=== PATIENT | female | born 1965 | race African-American/Black ===

== ENCOUNTER 2021-11-11 19:26 | Inpatient (IN) | payer MEDICAID, OTHER ==
[~2021-11-11] VITALS: Ht 162.6 cm; Wt 102.1 kg
[~2021-11-11 19:26] MED LIST: ASPI-862 PO; CLON0.5T4 PO; DIPH25CA83 PO; RANI150T8 PO
[2021-11-11 19:30] VITALS: BP_SYST 147
[2021-11-11 21:09] LABS: BASOPHILS # (AUTO) 0.1 K/uL (0.0-0.2); BASOPHILS % (AUTO) 1.4 % (0.0-2.0); EOSINOPHILS # (AUTO) 0.1 K/uL (0.0-0.4); EOSINOPHILS % (AUTO) 1.3 % (0.0-4.0); HEMOGLOBIN 10.9 g/dL (12.0-16.0); LYMPHOCYTES # (AUTO) 1.9 K/uL (1.0-5.5); LYMPHOCYTES % (AUTO) 41.3 % (20.5-51.5); MEAN CORPUSCULAR HEMOGLOBIN 24 pg (27-31); MEAN CORPUSCULAR HGB CONC 31 % (32-36); MEAN CORPUSCULAR VOLUME 77 fL (79.0-98.0); MONOCYTES # (AUTO) 0.3 K/uL (0.0-1.0); MONOCYTES % (AUTO) 7.3 % (1.7-9.3); NEUTROPHILS # (AUTO) 2.2 K/uL (1.8-7.7); NEUTROPHILS % (AUTO) 48.7 % (40.0-70.0); PLATELET COUNT (AUTO) 199 K/uL (130-430); RED BLOOD CELL COUNT(AUTO) 4.52 MIL/uL (4.2-6.2); RED CELL DISTRIBUTION WIDTH 19.9 % (9.0-15.0); WHITE BLOOD COUNT (AUTO) 4.6 K/uL (4.8-10.8)
[2021-11-11 21:13] LABS: ANION GAP 6 (5-15); CALCIUM 8.4 mg/dL (8.4-11.0); CHLORIDE 107 mmol/L (98-107); CREATININE 0.93 mg/dL (0.55-1.30); GFR AFRICAN AMERICAN 81 mL/min (>90); GLUCOSE 100 mg/dL (70-99); UREA NITROGEN, BLOOD 13 mg/dL (8-21)
[2021-11-11 21:21] LABS: ALANINE AMINOTRANSFERASE 29 U/L (12-78); ALBUMIN 3.3 g/dL (3.4-4.8); ASPARTATE AMINOTRANSFERASE 21 U/L (10-37); TOTAL BILIRUBIN 0.3 mg/dL (0.0-1.0)
[2021-11-11] MEDS ORDERED: iohexoL 300 mgI/mL, 150 ML INFUS..BTL IV ONE (21:38)
[2021-11-11] MEDS ORDERED: APIXABAN 2.5 MG TABLET PO SCH (21:45)
[2021-11-11] MEDS ORDERED: ASPIRIN 81 MG TAB.CHEW PO ONE (22:00)
[2021-11-11] MEDS ORDERED: cloNIDine HCL 0.1 MG TABLET PO PRN (22:45)
[2021-11-11] MEDS ORDERED: ACETAMINOPHEN 325 MG TABLET PO PRN (22:45)
[2021-11-11 23:00] VITALS: BP_SYST 158
[2021-11-12] MEDS: METOPROLOL TARTRATE 50 MG TABLET PO SCH ×3 (00:08→20:29)
[2021-11-12 07:00] VITALS: BP_SYST 153
[2021-11-12 08:00] VITALS: BP_SYST 153
[2021-11-12 08:28] LABS: CHOLESTEROL 156 mg/dL (<200); HDL CHOLESTEROL 69 mg/dL (>55); LDL CHOLESTEROL 76 mg/dL (<100); TRIGLYCERIDES 35 mg/dL (30-150)
[2021-11-12] MEDS: APIXABAN 2.5 MG TABLET PO SCH ×2 (08:50→20:29)
[2021-11-12] MEDS ORDERED: POTASSIUM CHLORIDE 40 MEQ in NS 250 ML IV ONE (11:00)
[2021-11-12] MEDS ORDERED: NON-FORMULARY MEDICATION (Ranitidine Hcl 150 MG) PO SCH (11:30)
[2021-11-12 12:01] VITALS: BP_SYST 122
[2021-11-12 16:05] VITALS: BP_SYST 111
[2021-11-12 20:00] VITALS: BP_SYST 124
[2021-11-12] MEDS: clonazePAM 0.5 MG TABLET PO SCH (20:30)
[2021-11-13] VITALS: BP_SYST 118
[2021-11-13 07:00] VITALS: BP_SYST 154
[2021-11-13 08:00] VITALS: BP_SYST 154
[2021-11-13] MEDS: METOPROLOL TARTRATE 50 MG TABLET PO SCH ×2 (08:30→20:04)
[2021-11-13] MEDS: APIXABAN 2.5 MG TABLET PO SCH ×2 (08:33→20:05)
[2021-11-13 12:10] VITALS: BP_SYST 132
[2021-11-13 16:00] VITALS: BP_SYST 113
[2021-11-13 20:00] VITALS: BP_SYST 151
[2021-11-13] MEDS: clonazePAM 0.5 MG TABLET PO SCH (20:03)
[2021-11-14] VITALS: BP_SYST 144
[2021-11-14] MEDS: METOPROLOL TARTRATE 50 MG TABLET PO SCH (09:21)
[2021-11-14] MEDS: APIXABAN 2.5 MG TABLET PO SCH (09:23)
[2021-11-14 11:30] VITALS: BP_SYST 140
== END 2021-11-14 11:50 | disposition home or self-care (01) | DRG 47 ==
LOC: SED 19:26 → STU 21:51
PROVIDERS: ADMIT Family Medicine; ATTEND Family Medicine
PROC: 4A10X4Z Monitoring of Central Nervous Electrical Activity, External Approach (ICD-10-PCS; principal; 2021-11-12)
DX: G45.9 Transient cerebral ischemic attack, unspecified (principal); E44.1 Mild protein-calorie malnutrition; I48.91 Unspecified atrial fibrillation; R53.1 Weakness; D64.9 Anemia, unspecified; E66.9 Obesity, unspecified; Z20.822 Contact with and (suspected) exposure to COVID-19; F17.210 Nicotine dependence, cigarettes, uncomplicated; I10 Essential (primary) hypertension; Z79.01 Long term (current) use of anticoagulants; Z79.899 Other long term (current) drug therapy; Z88.5 Allergy status to narcotic agent; Z88.8 Allergy status to other drugs, medicaments and biological substances; Z68.38 Body mass index [BMI] 38.0-38.9, adult
CPT/HCPCS: 36415; 70450-TC; 70496; 70498; 76376; 80053; 80061; 84484; 84703; 85025; 93005; 95816; 99291; 99292; G0378; Q9967

== ENCOUNTER 2022-02-28 18:32 | Inpatient (IN) | payer MEDICAID ==
[~2022-02-28] VITALS: Ht 160 cm; Wt 99.6 kg
[2022-02-28 18:40] VITALS: BP_SYST 151
[2022-02-28] MEDS ORDERED: NITROGLYCERIN 1 INCH (GM) OINT. TP ONE (19:12)
[2022-02-28] MEDS ORDERED: ASPIRIN 325 MG TABLET PO ONE (20:00)
[2022-02-28] MEDS ORDERED: MORPHINE 4 MG INJ. 4 MG/ML VIAL IVP ONE (20:00)
[2022-02-28 20:02] LABS: BASOPHILS % (AUTO) 0.1 % (0.0-2.0); EOSINOPHILS # (AUTO) 0.1 K/uL (0.0-0.4); EOSINOPHILS % (AUTO) 1.6 % (0.0-4.0); HEMOGLOBIN 11.1 g/dL (12.0-16.0); LYMPHOCYTES # (AUTO) 2.2 K/uL (1.0-5.5); LYMPHOCYTES % (AUTO) 46.6 % (20.5-51.5); MEAN CORPUSCULAR HEMOGLOBIN 23 pg (27-31); MEAN CORPUSCULAR HGB CONC 31 % (32-36); MEAN CORPUSCULAR VOLUME 74 fL (79.0-98.0); MONOCYTES # (AUTO) 0.3 K/uL (0.0-1.0); MONOCYTES % (AUTO) 6.5 % (1.7-9.3); NEUTROPHILS # (AUTO) 2.1 K/uL (1.8-7.7); NEUTROPHILS % (AUTO) 45.2 % (40.0-70.0); PLATELET COUNT (AUTO) 209 K/uL (130-430); RED BLOOD CELL COUNT(AUTO) 4.83 MIL/uL (4.2-6.2); RED CELL DISTRIBUTION WIDTH 16.3 % (9.0-15.0); WHITE BLOOD COUNT (AUTO) 4.7 K/uL (4.8-10.8)
[2022-02-28 20:18] LABS: ANION GAP 9 (5-15); CALCIUM 9.1 mg/dL (8.4-11.0); CHLORIDE 105 mmol/L (98-107); CREATININE 0.88 mg/dL (0.55-1.30); GLUCOSE 98 mg/dL (70-99); UREA NITROGEN, BLOOD 13 mg/dL (8-21)
[2022-02-28 20:30] LABS: ALANINE AMINOTRANSFERASE 30 U/L (12-78); ALBUMIN 3.7 g/dL (3.4-4.8); ASPARTATE AMINOTRANSFERASE 23 U/L (10-37); TOTAL BILIRUBIN 0.3 mg/dL (0.0-1.0)
[2022-02-28 20:31] LABS: GFR AFRICAN AMERICAN 86 mL/min (>90)
[2022-02-28] MEDS ORDERED: NITROGLYCERIN 0.4 MG TAB.SUBL SL PRN (21:00)
[2022-02-28] MEDS ORDERED: IBUP-2604 PO (22:27)
[2022-02-28] MEDS ORDERED: MORPHINE 2 MG/ML INJ. SYRINGE IVP ONE (22:45)
[2022-02-28 23:30] VITALS: BP_SYST 153
[2022-03-01 04:00] VITALS: BP_SYST 133
[2022-03-01 08:00] VITALS: BP_SYST 135
[2022-03-01] MEDS ORDERED: ASPIRIN 81 MG TAB.CHEW PO SCH (09:00)
[2022-03-01] MEDS ORDERED: METOPROLOL TARTRATE 25 MG TABLET PO SCH (09:00)
[2022-03-01] MEDS ORDERED: ENOXAPARIN SODIUM 40 MG/0.4 ML SYRINGE SUBCUT SCH (09:00)
[2022-03-01 12:00] VITALS: BP_SYST 127
== END 2022-03-01 14:00 | disposition home or self-care (01) | DRG 203 ==
LOC: SED 18:32 → STU 20:58
PROVIDERS: ADMIT Family Medicine; ATTEND Family Medicine
DX: M94.0 Chondrocostal junction syndrome [Tietze] (principal); I48.0 Paroxysmal atrial fibrillation; Z20.822 Contact with and (suspected) exposure to COVID-19; Z79.82 Long term (current) use of aspirin; Z87.891 Personal history of nicotine dependence; Z88.5 Allergy status to narcotic agent; Z86.73 Personal history of transient ischemic attack (TIA), and cerebral infarction without residual deficits; Z79.899 Other long term (current) drug therapy; Z88.8 Allergy status to other drugs, medicaments and biological substances; Z59.00 Homelessness unspecified
CPT/HCPCS: 36415; 71045; 80053; 82550; 83880; 84484; 85025; 85379; 93005; 96374; 99285; G0378; J2270

== ENCOUNTER 2022-06-18 18:42 | Emergency (ER) | payer MEDICAID ==
[~2022-06-18] VITALS: Ht 162.6 cm; Wt 95.3 kg
[~2022-06-18 18:42] MED LIST changes: -CLON0.5T4 PO; -DIPH25CA83 PO; +IBUP-2604 PO; -RANI150T8 PO
[2022-06-18 18:59] VITALS: BP_SYST 125
[2022-06-18 20:26] LABS: BASOPHILS % (AUTO) 0.7 % (0.0-2.0); EOSINOPHILS # (AUTO) 0.1 K/uL (0.0-0.4); EOSINOPHILS % (AUTO) 1.3 % (0.0-4.0); LYMPHOCYTES # (AUTO) 1.8 K/uL (1.0-5.5); LYMPHOCYTES % (AUTO) 32.2 % (20.5-51.5); MEAN CORPUSCULAR HEMOGLOBIN 23 pg (27-31); MEAN CORPUSCULAR HGB CONC 30 % (32-36); MEAN CORPUSCULAR VOLUME 75 fL (79.0-98.0); MONOCYTES # (AUTO) 0.5 K/uL (0.0-1.0); MONOCYTES % (AUTO) 8.2 % (1.7-9.3); NEUTROPHILS # (AUTO) 3.3 K/uL (1.8-7.7); NEUTROPHILS % (AUTO) 57.6 % (40.0-70.0); PLATELET COUNT (AUTO) 236 K/uL (130-430); RED BLOOD CELL COUNT(AUTO) 4.38 MIL/uL (4.2-6.2); RED CELL DISTRIBUTION WIDTH 17.1 % (9.0-15.0); WHITE BLOOD COUNT (AUTO) 5.7 K/uL (4.8-10.8)
[2022-06-18] MEDS ORDERED: IBUPROFEN 800 MG TABLET PO ONE (20:30)
--- NOTE | 2022-06-18 20:30 | NUR ---
PT IS HERE BECUASE SHE HAS A CHEST PAIN NO REDAITING ANYWHERE. PT IS ALERT AND ORIENTED X4. PT IS AMBULATORY
--- NOTE | 2022-06-18 20:32 | NUR ---
Placed in room 02 . Placed on monitor and storage bin tender, blood pressure machine and pulse oximeter. To gown for exam. Side rails up. Report given to YANELY VASQUEZ
[2022-06-18 20:42] LABS: ALANINE AMINOTRANSFERASE 29 U/L (12-78); ALBUMIN 3.2 g/dL (3.4-4.8); ANION GAP 6 (5-15); ASPARTATE AMINOTRANSFERASE 19 U/L (10-37); CALCIUM 8.7 mg/dL (8.4-11.0); CHLORIDE 106 mmol/L (98-107); GFR AFRICAN AMERICAN 84 mL/min (>90); GLUCOSE 98 mg/dL (70-99); TOTAL BILIRUBIN 0.3 mg/dL (0.0-1.0); UREA NITROGEN, BLOOD 12 mg/dL (8-21)
--- NOTE | 2022-06-18 23:00 | NUR ---
PT DAUGHTER AT THE BEDSIDE.
[2022-06-19 00:01] VITALS: BP_SYST 125
--- NOTE | 2022-06-19 00:01 | NUR ---
Patient given written and verbal discharge instructions and verbalizes understanding. ER MD discussed with patient the results and treatment provided. Patient in stable condition. ID arm band removed. .NO MEDICATION IS given. Patient educated on pain management and to follow up with PMD. Pain Scale 0/10. Opportunity for questions provided and answered. Medication side effect fact sheet provided.
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
== END 2022-06-19 00:01 | disposition home or self-care (01) ==
LOC: SED 18:42
DX: R07.89 Other chest pain (principal); I10 Essential (primary) hypertension; Z88.5 Allergy status to narcotic agent; Z88.8 Allergy status to other drugs, medicaments and biological substances; Z79.899 Other long term (current) drug therapy
CPT/HCPCS: 36415; 71045; 80053; 83880; 84484; 85025; 93005; 99285